=== PATIENT | female | born 1975 | race Caucasian/White ===

== ENCOUNTER 2023-10-29 15:26 | Outpatient (CLI) | payer MEDICAID ==
[2023-10-29] MEDS ORDERED: iohexol 300mg/ml 100ml inj. ONE (15:36)
== END 2023-10-29 23:59 | disposition home or self-care (01) ==
LOC: RAD 15:26
PROVIDERS: ATTEND General Practice
DX: R10.32 Left lower quadrant pain (principal); R10.2 Pelvic and perineal pain
CPT/HCPCS: 74177; Q9967